=== PATIENT | female | born 1970 | race Caucasian/White ===

== ENCOUNTER → 2016-05-25 | Outpatient (CLI) | payer BC ==
[2016-05-25 08:42] LABS: CH 30.4; CHCM 32.9; HCT 41.8 % (34.0-46.0); HDW 2.43; HGB 13.7 gm/dL (11.4-16.0); MCH 30.5 pg (25.0-35.0); MCHC 32.9 g/dL (31.0-37.0); MCV 92.8 fL (80.0-100.0); Mean Platelet Volume 7.2; RBC 4.51 m/uL (3.80-5.40); RDW 12.6 % (11.5-15.5); WBC 5.3 k/uL (3.8-10.6)
== END | disposition home or self-care (01) ==
LOC: LABPAT 08:22
PROVIDERS: ATTEND Surgery
DX: Z01.812 Encounter for preprocedural laboratory examination (principal)
CPT/HCPCS: 85027

== ENCOUNTER 2016-06-01 10:17 | Day surgery (SDC) | payer BC ==
[2016-05-22 09:19] VITALS: BMI 39.4
[~2016-06-01 10:17] MED LIST: DEXAMETHASONE SOD PHOSPHATE 10 MG/ML 1 ML VIAL IV ONE; HEPARIN SODIUM,PORCINE 5,000 UNIT/ML 1 ML VIAL SQ ONE; HYDROmorphone 1 MG/ML 1 ML SYRINGE IVP PRN; MIDAZOLAM 2 MG/2 ML VIAL IV PRN; ONDANSETRON 4 MG/2 ML VIAL IVP ONE; SCOPOLAMINE 1.5MG/72HR PATCH TRANSDERM ONE; ceFAZolin 2 GM in SODIUM CHLORIDE 0.9% 100 ML IVPB ONE
[2016-06-01] MEDS ORDERED: LIDOCAINE 1% 20 ML VIAL (10MG/ML) FOR IV START INTRADERMA ONE (10:30)
[2016-06-01] MEDS: LACTATED RINGERS 1,000 ML IV SCH ×2 (10:30→16:21)
[2016-06-01] MEDS ORDERED: ceFAZolin 2 GM in SODIUM CHLORIDE 0.9% 100 ML IVPB ONE (11:00)
--- NOTE | 2016-06-01 12:14 | P.GSHP ---
History of Present Illness H&P Date: 06/01/16 Chief Complaint: Umbilical hernia 46 yr old female presents with umbilical hernia - reducible. No bowel obstructon - Review of Systems Comment: all negative excepts stated in [facility] Past Medical History Past Medical History: Thyroid Disorder History of Any Multi-Drug Resistant Organisms: None Reported Past Surgical History: Section, Tubal Ligation Past Anesthesia/Blood Transfusion Reactions: No Reported Reaction Past Psychological History: No Psychological Hx Reported Smoking Status: Former smoker Past Alcohol Use History: Occasional Additional Past Alcohol Use History / Comment(s): Smoked 1/2 PPD for 10 yrs, quit in 2006. Past Drug Use History: None Reported - Past Family History Mother Family Medical History: Deep Vein Thrombosis (DVT) Medications and Allergies Home Medications Medication Instructions Recorded Confirmed Type Levothyroxine Sodium [Synthroid] 112 mcg PO QAM 05/22/16 06/01/16 History Allergies Allergy/AdvReac Type Severity Reaction Status Date / Time No Known Allergies Allergy Verified 06/01/16 10:25 Surgical - Exam Vital Signs Temp Pulse Resp BP Pulse Ox 98 F 52 L 16 143/80 96 06/01/16 10:28 06/01/16 10:28 06/01/16 10:28 06/01/16 10:28 06/01/16 10:28 Reducible umbilical hernia Assessment and Plan (1) Umbilical hernia Status: Acute Plan: 1. Informed consent obtained. 2. Robotic assist lap umbilical hernia repair with mesh
[2016-06-01] MEDS ORDERED: BUPIVACAIN-EPI 0.25%-1:200,000 30 ML VIAL SQ ONE (13:22)
[2016-06-01] MEDS ORDERED: LACTATED RINGERS 1,000 ML IV ONE (14:18)
[2016-06-01 15:16] VITALS: TEMP 98.7
[2016-06-01 15:20] VITALS: RESP 16
[2016-06-01 17:05] VITALS: BP 135/80; PULSE 68
--- NOTE | 2016-07-02 15:54 | P.OP ---
Date of Procedure: 06/01/16 Preoperative Diagnosis: Umbilical hernia Obesity BMI 39.5 Hypothyroidism Postoperative Diagnosis: Same Procedure(s) Performed: Robotic assist laparoscopic umbilical hernia repair with mesh Implants: Ventralight ST mesh Anesthesia: NOLAN local Surgeon: Mariana Andrade Pathology: none sent Condition: stable Disposition: PACU Indications for Procedure: 46 years old female presents with umbilical hernia. Informed consent obtained and patient elected to undergo robotic assist laparoscopic umbilical hernia repair with mesh Description of Procedure: The patient was brought to the operating room and placed in supine position. General anesthesia with endotracheal intubation was performed as per anesthesia team. The right arm was tucked against the body and a footboard was applied. Chlorhexidine was used to prep the skin followed by application of sterile drapes and Ioban dressing. A timeout was performed to verify correct patient and correct procedure. Patient was confirmed to receive perioperative IV antibiotics , bilateral SCDs and 5000 units of subcutaneous heparin for VTE prophylaxis. A 5 mm skin incision was made along the left midaxillary line and a Veress needle was inserted to establish the pneumoperitoneum to a pressure of 15 mm of Hg. Using a 5 mm 30 laparoscope the peritoneal cavity was entered using the Optiview technique. Additional 12 mm trocar was placed in the mid axillary line in the left mid abdomen and robotic 8 mm trocar in the left lower abdomen. The 5 mm trocar was upsized to 8 mm robotic trocar. The da Clari robot was then docked. The 30 robotic camera was used. A robotic prograsp and monopolar scissors were inserted through 8 mm robotic trocars The hernia defect contained preperitoneal fat and omentum which were reduced using gentle traction and countertraction method. The falciform ligament was divided using monopolar scissors close to the anterior abdominal wall to create a landing zone for the mesh. A Ventralight ST circular mesh was tagged in the center using a prolene stitich and was rolled and introduced to the abdominal cavity via the 12 mm trocar. The hernia defect was closed primarily with running sutures using O- V lock by taking 1 cm bite on the fascia on either side of the defect. A Ra Domingo device was inserted through the middle of the hernia defect and the stay suture on the mesh was grasped to elevate the mesh against the anterior abdominal wall. The mesh was circumferentially sutured to the peritoneum of the anterior abdominal wall using 2-0 V lock without any folds or kinks. The robot was then undocked. Laparoscopic 30 degrees camera was reinserted. All trocar sites were examined. No evidence of bleeding. The 12 mm trocar site was closed using two transfascial sutures of 0 Vicryl which were placed using a Ra Domingo device. The pneumoperitoneum was evacuated and all the skin incisions were closed using 4-0 Monocryl followed by Dermabond skin glue. Telfa and Tegaderm dressings were applied. The sponge, instrument and needle count were correct x2. Abdominal binder was applied. The patient was extubated and taken to post anesthesia care unit in stable condition.
== END 2016-06-01 17:15 | disposition home or self-care (01) ==
LOC: OR 10:17
PROVIDERS: ATTEND Surgery
DX: K42.9 Umbilical hernia without obstruction or gangrene (principal); E66.9 Obesity, unspecified; Z68.39 Body mass index [BMI] 39.0-39.9, adult; E03.9 Hypothyroidism, unspecified; Z79.899 Other long term (current) drug therapy; Z87.891 Personal history of nicotine dependence
CPT/HCPCS: 49652; S2900; 81025; 88302

== ENCOUNTER → 2017-03-15 | Outpatient (CLI) | payer BC ==
--- NOTE | 2017-03-19 08:40 | MM ---
Reason for exam: screening (asymptomatic). Last mammogram was performed 3 years and 2 months ago. History: Patient is postmenopausal. Physical Findings: A clinical breast exam by your physician is recommended on an annual basis and results should be correlated with mammographic findings. MG Screening Mammo w CAD Bilateral CC and MLO view(s) were taken. Prior study comparison: January 19, 2014, bilateral MG screening mammo w CAD. September 09, 2012, bilateral digital screening mammo w/CAD. There are scattered fibroglandular densities. Central asymmetric density right CC view has no MLO correlate, suspected altered orientation of fibroglandular tissue. 6 month follow up recommended. ASSESSMENT: Probably benign, BI-RAD 3 RECOMMENDATION: Follow-up diagnostic mammogram of the right breast in 6 months.
== END | disposition home or self-care (01) ==
LOC: RADMAMWWP 07:53
PROVIDERS: ATTEND Family Medicine
DX: Z12.31 Encounter for screening mammogram for malignant neoplasm of breast (principal)
CPT/HCPCS: 77067

== ENCOUNTER → 2017-09-13 | Outpatient (CLI) | payer BC ==
--- NOTE | 2017-09-13 09:01 | MM ---
Reason for exam: follow-up at short interval from prior study. Last mammogram was performed 6 months ago. History: Patient had first child at age 40. Took hormonal contraceptives beginning at age 16. Physical Findings: Nurse did not find any significant physical abnormalities on exam. MG 3D Diag Mammo W/Cad RT CC and MLO view(s) were taken of the right breast. Prior study comparison: March 15, 2017, bilateral MG screening mammo w CAD. January 19, 2014, bilateral MG screening mammo w CAD. There are scattered fibroglandular densities. There is no discrete abnormality. These results were verbally communicated with the patient and result sheet given to the patient on 09/13/17. ASSESSMENT: Negative, BI-RAD 1 RECOMMENDATION: Routine screening mammogram of both breasts in 1 year.
== END | disposition home or self-care (01) ==
LOC: RADMAMWWP 08:01
PROVIDERS: ATTEND Family Medicine
DX: R92.2 Inconclusive mammogram (principal)
CPT/HCPCS: 77061; 77065

== ENCOUNTER → 2018-10-17 | Outpatient (CLI) | payer BC ==
--- NOTE | 2018-10-20 10:25 | MM ---
Reason for exam: screening (asymptomatic). Last mammogram was performed 1 year and 1 month ago. History: Patient had first child at age 40. Took hormonal contraceptives beginning at age 16. Physical Findings: A clinical breast exam by your physician is recommended on an annual basis and results should be correlated with mammographic findings. MG 3D Screening Mammo W/Cad Bilateral CC and MLO view(s) were taken. Prior study comparison: September 13, 2017, right breast MG 3d diag mammo w/cad RT. March 15, 2017, bilateral MG screening mammo w CAD. There are scattered fibroglandular densities. There is no discrete abnormality. No significant changes when compared with prior studies. ASSESSMENT: Negative, BI-RAD 1 RECOMMENDATION: Routine screening mammogram of both breasts in 1 year.
== END | disposition home or self-care (01) ==
LOC: RADMAMWWP 08:09
PROVIDERS: ATTEND Family Medicine
DX: Z12.31 Encounter for screening mammogram for malignant neoplasm of breast (principal)
CPT/HCPCS: 77063; 77067

== ENCOUNTER → 2020-06-13 | Outpatient (CLI) | payer BC ==
--- NOTE | 2020-06-14 10:02 | MM ---
Reason for exam: additional evaluation requested from prior study. Last mammogram was performed 1 year and 8 months ago. History: Patient had first child at age 40. Took hormonal contraceptives beginning at age 16. Physical Findings: Nurse did not find any significant physical abnormalities on exam. MG 3D Diag Mammo W/Cad AMY Bilateral CC and MLO view(s) were taken. Prior study comparison: October 17, 2018, bilateral MG 3d screening mammo w/cad. September 13, 2017, right breast MG 3d diag mammo w/cad RT. There are scattered fibroglandular densities. There is chronic nodularity in the right breast. Asymmetric breast tissue right centrally stable from 2018. There is no discrete abnormality. These results were verbally communicated with the patient and result sheet given to the patient on 06/13/20. ASSESSMENT: Benign, BI-RAD 2 RECOMMENDATION: Routine screening mammogram of both breasts in 1 year.
--- NOTE | 2020-06-14 10:03 | USB ---
Reason for exam: additional evaluation requested from prior study. History: Patient had first child at age 40. Took hormonal contraceptives beginning at age 16. US Breast BILAT Right complete breast ultrasound includes all four quadrants, the retroareolar region and axilla. Finding demonstrates no cystic or solid lesion seen. Left complete breast ultrasound includes all four quadrants, the retroareolar region and axilla. Finding demonstrates no cystic or solid lesion seen. These results were verbally communicated with the patient and result sheet given to the patient on 06/13/20. ASSESSMENT: Negative, BI-RAD 1 RECOMMENDATION: Routine screening mammogram of both breasts in 1 year. Manage patient on a clinical basis.
== END | disposition home or self-care (01) ==
LOC: RADMAMWWP 09:31
PROVIDERS: ATTEND Family Medicine
DX: R92.8 Other abnormal and inconclusive findings on diagnostic imaging of breast (principal)
CPT/HCPCS: 77062; 77066

== ENCOUNTER → 2021-08-18 | Outpatient (CLI) | payer BC ==
--- NOTE | 2021-08-21 14:18 | MM ---
Reason for Exam: Screening (asymptomatic). Last mammogram was performed 1 year(s) and 2 month(s) ago. Patient History: Menarche at age 11. First Full-Term at age 40. Late child-bearing (after 30). Hormonal Contraceptives, from age 16 until age 35. Risk Values: [place] 5 year model risk: 1.5%. NCI Lifetime model risk: 13.0%. Prior Study Comparison: 09/13/2017 Right Diagnostic Mammogram, [facility]. 10/17/2018 Bilateral Screening Mammogram, [facility]. 06/13/2020 Bilateral Diagnostic Mammogram, [facility]. Tissue Density: There are scattered fibroglandular densities. Findings: Analyzed By CAD. There is no suspicious group of microcalcifications or new suspicious mass in either breast. Overall Assessment: Negative, BI-RAD 1 Management: Screening Mammogram of both breasts in 1 year. 1. Patient should continue monthly self breast exams. 2. A clinical breast exam by your physician is recommended on an annual basis. 3. This exam should not preclude additional follow-up of suspicious palpable abnormalities. Electronically signed and approved by: Isaiah Winchester M.D. Radiologist
== END | disposition home or self-care (01) ==
LOC: RADMAMWWP 13:56
PROVIDERS: ATTEND Family Medicine
DX: Z12.31 Encounter for screening mammogram for malignant neoplasm of breast (principal)
CPT/HCPCS: 77063; 77067